=== PATIENT | female | born 1960 | race Caucasian/White ===

== ENCOUNTER → 2017-09-26 | Outpatient (CLI) | payer BC ==
[~2017-09-26] MED LIST: CALC-656 PO; HYDR-3583 PO; LOVA20TA2 PO
--- NOTE | 2017-09-26 18:58 | Diagnostic Imaging Report ---
EXAMINATION: Digital mammogram bilateral screening. INDICATION: Screening. COMPARISON: This study was compared to the prior exams of 12/14/2015, 07/15/2014, and 08/23/2012. At this time, there are no current complaints. The current study was also evaluated with a Computer Aided Detection (CAD) system. FINDINGS: The fibroglandular tissue in both breasts is dense. This does limit the sensitivity of this exam. On the craniocaudad view of the right breast in the mid portion of the breast, approximately 3 cm from the nipple, there is a 1 cm nodular density. This density seems to persist on the tomographic views but cannot be clearly identified on the MLO projection. This finding may merely be secondary to superimposition. Even so, I would recommend that ultrasound of the right breast be performed for further study. The left breast is unchanged. IMPRESSION: Ultrasound would be recommended for further evaluation of the nodular density in the retroareolar region of the right breast. ACR BI-RADS Category 0: Incomplete. (Needs additional imaging evaluation). Result letter will be mailed to the patient. Note: At least 10% of breast cancer is not imaged by mammography. Dictated by: Dictated on workstation # [id number]
== END ==
LOC: RAD 08:52
PROVIDERS: ATTEND Obstetrics & Gynecology
DX: Z12.31 Encounter for screening mammogram for malignant neoplasm of breast (principal)
CPT/HCPCS: 77067

== ENCOUNTER → 2017-10-05 | Outpatient (CLI) | payer BC ==
--- NOTE | 2017-10-05 17:20 | Diagnostic Imaging Report ---
INDICATION: Right breast density. EXAMINATION: Correlation is made with recent screening mammogram from 09/26/2017. FINDINGS: Recent screening mammogram demonstrated a nodular density in the right breast, only seen on the CC view. Sonographic interrogation of the right breast was performed. No discrete solid or cystic mass was identified. IMPRESSION: No sonographic abnormality is identified. Even so, diagnostic mammography would be recommended including spot compression and rolled CC views. ACR BI-RADS Category 0: Incomplete. (Needs additional imaging evaluation). Result letter will be mailed to the patient. Note: At least 10% of breast cancer is not imaged by mammography. Dictated by: Dictated on workstation # [id number]
== END ==
LOC: RAD 13:55
PROVIDERS: ATTEND Obstetrics & Gynecology
DX: R92.8 Other abnormal and inconclusive findings on diagnostic imaging of breast (principal)
CPT/HCPCS: 76641

== ENCOUNTER → 2017-10-19 | Outpatient (CLI) | payer BC ==
--- NOTE | 2017-10-19 12:49 | Diagnostic Imaging Report ---
Indication: Right breast density. Patient presents for additional views. Correlation is made with the screening mammogram from 09/26/2017 and ultrasound from 10/05/2017. The current study was also evaluated with a Computer Aided Detection (CAD) system. Patient returned and spot compression CC as well as rolled cc views were obtained utilizing 3-D mammography. Right breast is heterogeneously dense. No mass or malignant appearing microcalcifications are seen. The density noted on the screening study does resolve and most likely represented superimposed fibroglandular tissue. IMPRESSION: BI-RADS category 2 Additional views fail to demonstrate a discrete mass. The patient may return to routine annual screening mammography. ACR BI-RADS Category 2: Benign findings. Result letter will be mailed to the patient. Note: At least 10% of breast cancer is not imaged by mammography. Dictated by: Dictated on workstation # [id number]
== END ==
LOC: RAD 12:26
PROVIDERS: ATTEND Obstetrics & Gynecology
DX: R92.2 Inconclusive mammogram (principal)

== ENCOUNTER → 2019-03-18 | Outpatient (CLI) | payer BC ==
--- NOTE | 2019-03-18 13:27 | Diagnostic Imaging Report ---
INDICATION: Screening. TECHNIQUE: The current study was also evaluated with a Computer Aided Detection (CAD) system. 3D Tomographic imaging was also performed. COMPARISON: 09/26/2017, 12/14/2015, and 07/15/2014. FINDINGS: The fibroglandular tissue is heterogeneously dense bilaterally. There are scattered benign type calcifications in both breasts. There is no dominant mass, spiculated lesion, or suspicious calcification identified. The skin, nipples, and axillae are unremarkable. IMPRESSION: Benign findings. ACR BI-RADS Category 2: Benign findings. Result letter will be mailed to the patient. Note: At least 10% of breast cancer is not imaged by mammography. Dictated by: Dictated on workstation # [id number]
== END ==
LOC: RAD 11:18
PROVIDERS: ATTEND Obstetrics & Gynecology
DX: Z12.31 Encounter for screening mammogram for malignant neoplasm of breast (principal)
CPT/HCPCS: 77067